=== PATIENT | male | born 1965 | race African-American/Black ===

== ENCOUNTER 2023-06-14 09:34 | Inpatient (IN) | payer MEDICAID, OTHER ==
[~2023-06-14] VITALS: Ht 175.3 cm; Wt 115.2 kg
[2023-06-14] VITALS (8 sets, daily range): BP systolic 165–194; BP diastolic 107–133; PULSE 92–96; RESP 18–25; TEMP 99.2
[2023-06-14 10:20] LABS: BASOPHILS % 0.2 % (0.0-2.0); EOSINOPHILS % 1.7 % (0.0-5.0); HEMATOCRIT. 44.5 % (42.0-52.0); HEMOGLOBIN. 14.5 g/dL (14.0-18.0); LYMPHOCYTES % 18.7 % (20.0-50.0); MEAN CORPUSCULAR HEMOGLOBIN 28.2 pg (28.0-32.0); MEAN CORPUSCULAR HGB CONC 32.7 g/dL (31.0-37.0); MEAN CORPUSCULAR VOLUME 86.3 fL (80.0-94.0); MONOCYTES % 7.7 % (2.0-8.0); NEUTROPHILS % 71.7 % (40.0-76.0); PLATELET 187 x1000/uL (130-400); RED BLOOD CELL COUNT 5.15 mill/uL (4.7-6.1); RED CELL DISTRIBUTION WIDTH 16.8 % (11.6-14.6)
[2023-06-14] MEDS ORDERED: HYDRALAZINE 20MG/ML VIAL IV NR (10:30)
[2023-06-14 10:35] LABS: CALCIUM 8.7 mg/dL (8.5-10.1); CHLORIDE 105 mEq/L (98-107); INDEX HEMOLYSI 1 (1-3); INDEX ICTERIC 1 (1-4); INDEX LIPEMIC 1 (1-3); POTASSIUM 3.6 mEq/L (3.5-5.1); SODIUM 136 mEq/L (136-145)
[2023-06-14 10:44] LABS: ALANINE AMINOTRANSFERASE 21 IU/L (13-61); ALBUMIN 3.6 g/dL (3.4-5.0); ASPARTATE AMINOTRANSFERASE 19 IU/L (15-37); CARBON DIOXIDE 28 mEq/L (21-32); CREATININE 1.1 mg/dL (0.6-1.3); GLUCOSE 91 mg/dL (70-105); PROTEIN TOTAL 8.5 g/dL (6.0-8.3); TROPONIN I HIGH SENSITIVITY 41 ng/L (<78); UREA NITROGEN BLOOD 14 mg/dL (7-21)
[2023-06-14 10:48] LABS: NT PRO B-TYPE NATRIURETIC PEP 937 pg/mL (5-125)
[2023-06-14] MEDS ORDERED: HYDRALAZINE 20MG/ML VIAL IV ONE (11:45)
[2023-06-14] MEDS: FUROSEMIDE 40MG/4ML VIAL IVP SCH ×2 (12:00→13:40)
[2023-06-14] MEDS ORDERED: LABETALOL 5MG/ML SYR 20 MG/4 ML SYRINGE IV ONE (15:30)
[2023-06-14] MEDS ORDERED: LABETALOL 5MG/ML SYR 20 MG/4 ML SYRINGE IV NR (16:00)
[2023-06-14] MEDS ORDERED: NITROGLYCERIN 50MG PREMIX 250 ML IV PRN ×2 (17:46→18:00)
[2023-06-14] MEDS ORDERED: ACETAMINOPHEN 325MG TABLET PO PRN (23:15)
[2023-06-14] MEDS ORDERED: DOCUSATE SODIUM 100MG CAPSULE PO PRN (23:15)
[2023-06-14] MEDS ORDERED: ONDANSETRON HCL 4MG/2ML INJ IV PRN (23:15)
[2023-06-14] MEDS ORDERED: IPRATROPIUM/ALBUTEROL 0.5-3(2.5)MG/3ML NEB HHN PRN (23:15)
[2023-06-14] MEDS ORDERED: HYDROCODONE/ACETAMINOPHEN 5/325MG TABLET PO PRN (23:15)
[2023-06-14] MEDS ORDERED: LORAZEPAM 0.5MG TABLET PO PRN (23:15)
[2023-06-14] MEDS ORDERED: NALOXONE HCL 0.4MG/ML VIAL IV PRN (23:30)
[2023-06-14] MEDS: ACETAMINOPHEN 325MG TABLET PO PRN (23:47)
[2023-06-15] VITALS (94 sets, daily range): BP systolic 117–185; BP diastolic 54–124; PULSE 83–103; RESP 8–131; TEMP 97.8–98.6
[2023-06-15] MEDS: NICARDIPINE 50 MG in SODIUM CHLORIDE 0.9% 230 ML IV PRN ×3 (00:03→10:49)
[2023-06-15 05:35] LABS: BASOPHILS % 0.2 % (0.0-2.0); CHLORIDE 100 mEq/L (98-107); HEMATOCRIT. 45.9 % (42.0-52.0); HEMOGLOBIN. 14.9 g/dL (14.0-18.0); INDEX HEMOLYSI 1 (1-3); INDEX ICTERIC 1 (1-4); INDEX LIPEMIC 1 (1-3); LYMPHOCYTES % 14.7 % (20.0-50.0); MEAN CORPUSCULAR HEMOGLOBIN 27.9 pg (28.0-32.0); MEAN CORPUSCULAR HGB CONC 32.4 g/dL (31.0-37.0); MEAN CORPUSCULAR VOLUME 86.3 fL (80.0-94.0); MEAN PLATELET VOLUME 7.9 fl (7.4-10.4); MONOCYTES % 9.8 % (2.0-8.0); NEUTROPHILS % 74.3 % (40.0-76.0); PLATELET 207 x1000/uL (130-400); POTASSIUM 3.2 mEq/L (3.5-5.1); RED BLOOD CELL COUNT 5.32 mill/uL (4.7-6.1); RED CELL DISTRIBUTION WIDTH 16.4 % (11.6-14.6); SODIUM 137 mEq/L (136-145); WHITE BLOOD COUNT 5.9 x1000/uL (4.5-11.0)
[2023-06-15 05:40] LABS: CALCIUM 9.2 mg/dL (8.5-10.1); CARBON DIOXIDE 27 mEq/L (21-32); CREATININE 1.1 mg/dL (0.6-1.3); GLUCOSE 130 mg/dL (70-105); UREA NITROGEN BLOOD 15 mg/dL (7-21)
[2023-06-15 05:52] LABS: *AMPHETAMINES SCREEN URINE NEGATIVE (NEGATIVE); *BARBITURATES SCREEN URINE NEGATIVE (NEGATIVE); *BENZODIAZEPINES SCREEN URINE NEGATIVE (NEGATIVE); *COCAINE SCREEN URINE NEGATIVE (NEGATIVE); CANNABINOID URINE SCREEN NEGATIVE (NEGATIVE); ECSTASY MDMA SCREEN URINE NEGATIVE (NEGATIVE); METHADONE URINE SCREEN NEGATIVE (NEGATIVE); OPIATES URINE SCREEN NEGATIVE (NEGATIVE); PHENCYCLIDINE URINE SCREEN NEGATIVE (NEGATIVE)
[2023-06-15 06:11] LABS: HEPATITIS B SURFACE ANTIGEN NEGATIVE
[2023-06-15 06:40] LABS: HEPATITIS C VIR.AB 0.19 INDEXVAL (0.00-0.80)
[2023-06-15] MEDS: FUROSEMIDE 40MG/4ML VIAL IVP SCH ×3 (09:13→17:00)
[2023-06-15] MEDS: LOSARTAN POTASSIUM 100 MG TABLET PO SCH (11:22)
[2023-06-15] MEDS: CLONIDINE 0.1MG TABLET PO SCH ×2 (11:22→13:08)
[2023-06-15] MEDS ORDERED: POTASSIUM CHLORIDE 20MEQ/PACKET PO NR (12:15)
[2023-06-15] MEDS ORDERED: SPIRONOLACTONE 25MG TABLET PO SCH (12:15)
[2023-06-15 12:44] LABS: TROPONIN I HIGH SENSITIVITY 58 ng/L (<78)
[2023-06-15] MEDS ORDERED: HYDRALAZINE HCL 50MG TABLET PO SCH (14:00)
[2023-06-15 15:12] LABS: TROPONIN I HIGH SENSITIVITY 106 ng/L (<78)
[2023-06-15] MEDS: SPIRONOLACTONE 25MG TABLET PO SCH (17:00)
[2023-06-15] MEDS: HYDRALAZINE HCL 100MG TABLET PO SCH (21:44)
[2023-06-15] MEDS: CLONIDINE 0.2MG TABLET PO SCH (21:44)
[2023-06-16] VITALS (48 sets, daily range): BP systolic 117–175; BP diastolic 63–112; PULSE 84–107; RESP 12–63; TEMP 98–99.2
[2023-06-16] MEDS: HYDRALAZINE HCL 100MG TABLET PO SCH ×3 (06:07→21:48)
[2023-06-16] MEDS: CLONIDINE 0.2MG TABLET PO SCH ×3 (06:07→21:47)
[2023-06-16 07:09] LABS: TROPONIN I HIGH SENSITIVITY 165 ng/L (<78)
[2023-06-16] MEDS ORDERED: ASPIRIN 81MG TABLET PO NR (07:30)
[2023-06-16 08:28] LABS: BASOPHILS % 0.3 % (0.0-2.0); EOSINOPHILS % 1.9 % (0.0-5.0); HEMATOCRIT. 42.9 % (42.0-52.0); LYMPHOCYTES % 14.6 % (20.0-50.0); MEAN CORPUSCULAR HEMOGLOBIN 28.2 pg (28.0-32.0); MEAN CORPUSCULAR HGB CONC 32.7 g/dL (31.0-37.0); MEAN CORPUSCULAR VOLUME 86.2 fL (80.0-94.0); MEAN PLATELET VOLUME 8.1 fl (7.4-10.4); MONOCYTES % 11.2 % (2.0-8.0); PLATELET 169 x1000/uL (130-400); RED BLOOD CELL COUNT 4.98 mill/uL (4.7-6.1); RED CELL DISTRIBUTION WIDTH 16.5 % (11.6-14.6); WHITE BLOOD COUNT 4.8 x1000/uL (4.5-11.0)
[2023-06-16 08:38] LABS: CHLORIDE 104 mEq/L (98-107); INDEX HEMOLYSI 3 (1-3); INDEX ICTERIC 1 (1-4); INDEX LIPEMIC 1 (1-3); POTASSIUM 3.4 mEq/L (3.5-5.1); SODIUM 138 mEq/L (136-145)
[2023-06-16 08:46] LABS: ALANINE AMINOTRANSFERASE 18 IU/L (13-61); ALBUMIN 2.9 g/dL (3.4-5.0); ASPARTATE AMINOTRANSFERASE 25 IU/L (15-37); BILIRUBIN TOTAL 1.7 mg/dL (0.1-1.0); CALCIUM 8.5 mg/dL (8.5-10.1); CARBON DIOXIDE 20 mEq/L (21-32); CREATININE 1.4 mg/dL (0.6-1.3); GLUCOSE 94 mg/dL (70-105); PROTEIN TOTAL 7.3 g/dL (6.0-8.3); UREA NITROGEN BLOOD 23 mg/dL (7-21)
[2023-06-16] MEDS: FUROSEMIDE 40MG/4ML VIAL IVP SCH (08:52)
[2023-06-16] MEDS: LOSARTAN POTASSIUM 100 MG TABLET PO SCH (08:53)
[2023-06-16] MEDS: SPIRONOLACTONE 25MG TABLET PO SCH (08:53)
[2023-06-16] MEDS ORDERED: POTASSIUM CHLORIDE 20MEQ/PACKET PO NR (10:30)
[2023-06-16] MEDS ORDERED: MAGNESIUM 2 G PREMIX 50 ML IV NR (12:30)
[2023-06-16] MEDS: ACETAMINOPHEN 325MG TABLET PO PRN (12:34)
[2023-06-16] MEDS: AMLODIPINE 5MG TABLET PO SCH (21:48)
[2023-06-17] VITALS: BP 124/73; PULSE 81; RESP 21; TEMP 99
[2023-06-17 04:00] VITALS: BP 119/75; PULSE 85; RESP 16; TEMP 98.6
[2023-06-17] MEDS: CLONIDINE 0.2MG TABLET PO SCH ×3 (05:55→21:17)
[2023-06-17] MEDS: HYDRALAZINE HCL 100MG TABLET PO SCH ×3 (05:55→21:17)
[2023-06-17 07:08] LABS: POTASSIUM 3.5 mEq/L (3.5-5.1)
[2023-06-17 07:10] LABS: CALCIUM 8.7 mg/dL (8.5-10.1)
[2023-06-17 07:25] LABS: BASOPHILS % 0.1 % (0.0-2.0); HEMATOCRIT. 41.6 % (42.0-52.0); HEMOGLOBIN. 13.7 g/dL (14.0-18.0); LYMPHOCYTES % 14.2 % (20.0-50.0); MEAN CORPUSCULAR HEMOGLOBIN 28.4 pg (28.0-32.0); MEAN PLATELET VOLUME 8.3 fl (7.4-10.4); MONOCYTES % 11.2 % (2.0-8.0); NEUTROPHILS % 72.5 % (40.0-76.0); PLATELET 178 x1000/uL (130-400); RED BLOOD CELL COUNT 4.84 mill/uL (4.7-6.1); RED CELL DISTRIBUTION WIDTH 16.2 % (11.6-14.6); WHITE BLOOD COUNT 5.5 x1000/uL (4.5-11.0)
[2023-06-17] MEDS: AMLODIPINE 5MG TABLET PO SCH ×2 (08:37→21:17)
[2023-06-17] MEDS: LOSARTAN POTASSIUM 100 MG TABLET PO SCH (08:38)
[2023-06-17 08:46] LABS: CREATININE 1.8 mg/dL (0.6-1.3)
[2023-06-17 13:06] LABS: INDEX HEMOLYSI 1 (1-3)
[2023-06-17 13:12] LABS: CREATINE KINASE 109 IU/L (39-308)
[2023-06-17 20:00] VITALS: BP 148/80; PULSE 75; RESP 20; TEMP 99.1
[2023-06-18] VITALS (7 sets, daily range): BP systolic 111–143; BP diastolic 65–97; PULSE 72–87; RESP 15–22; TEMP 97.8–99.2
[2023-06-18] MEDS: HYDRALAZINE HCL 100MG TABLET PO SCH ×3 (05:30→22:40)
[2023-06-18] MEDS: CLONIDINE 0.2MG TABLET PO SCH ×3 (05:31→22:40)
[2023-06-18 06:37] LABS: BASOPHILS % 0.2 % (0.0-2.0); EOSINOPHILS % 1.8 % (0.0-5.0); HEMATOCRIT. 39.9 % (42.0-52.0); HEMOGLOBIN. 13.1 g/dL (14.0-18.0); MEAN CORPUSCULAR HEMOGLOBIN 28.3 pg (28.0-32.0); MEAN CORPUSCULAR HGB CONC 32.9 g/dL (31.0-37.0); MEAN PLATELET VOLUME 8.2 fl (7.4-10.4); MONOCYTES % 12.1 % (2.0-8.0); NEUTROPHILS % 73.9 % (40.0-76.0); PLATELET 167 x1000/uL (130-400); RED BLOOD CELL COUNT 4.64 mill/uL (4.7-6.1); RED CELL DISTRIBUTION WIDTH 15.8 % (11.6-14.6)
[2023-06-18 07:29] LABS: CALCIUM 8.5 mg/dL (8.5-10.1)
[2023-06-18 07:37] LABS: CREATININE 2.1 mg/dL (0.6-1.3)
[2023-06-18] MEDS: AMLODIPINE 5MG TABLET PO SCH ×2 (10:01→21:06)
[2023-06-18 10:23] LABS: CLARITY URINE CLEAR (CLEAR); COLOR URINE DARK YELLOW (YELLOW); GLUCOSE URINE NEGATIVE (NEGATIVE); KETONES URINE NEGATIVE (NEGATIVE); LEUKOCYTE ESTERASE URINE NEGATIVE (NEGATIVE); NITRITE URINE NEGATIVE (NEGATIVE); OCCULT BLOOD URINE NEGATIVE (NEGATIVE); PROTEIN URINE 1+ (NEGATIVE); SPECIFIC GRAVITY URINE 1.018 (1.005-1.030)
[2023-06-18] MEDS: SODIUM CHLORIDE 0.9% 1,000 ML IV SCH (10:44)
[2023-06-18 10:51] LABS: SQUAMOUS EPITHELIAL CELL URINE RARE /lpf (RARE/1+)
[2023-06-18 10:53] LABS: BACTERIA URINE TRACE; RBC URINE NONE SEEN /hpf (0-2); WBC URINE 0-2 /hpf (0-2)
[2023-06-18] MEDS ORDERED: POTASSIUM CHLORIDE 20MEQ/PACKET PO SCH (11:00)
[2023-06-18] MEDS ORDERED: HYDR100T26 PO (16:41)
[2023-06-18] MEDS ORDERED: AMLO5TAB88 PO (16:41)
[2023-06-18] MEDS ORDERED: CLON0.2T PO (16:41)
[2023-06-18] MEDS ORDERED: ENOXAPARIN 30MG/0.3ML SYR SUBCUT SCH (18:00)
[2023-06-18] MEDS ORDERED: ENOXAPARIN 100MG/ML SYR SUBCUT NR (19:15)
[2023-06-19] VITALS (8 sets, daily range): BP systolic 135–149; BP diastolic 84–97; PULSE 72–82; RESP 20–23; TEMP 97.9–98.2; O2SAT 99
[2023-06-19] MEDS: HYDRALAZINE HCL 100MG TABLET PO SCH ×2 (05:31→14:00)
[2023-06-19] MEDS: CLONIDINE 0.2MG TABLET PO SCH ×2 (05:31→14:00)
[2023-06-19] MEDS: SODIUM CHLORIDE 0.9% 1,000 ML IV SCH (05:32)
[2023-06-19 05:46] LABS: BASOPHILS % 0.3 % (0.0-2.0); EOSINOPHILS % 2.8 % (0.0-5.0); HEMATOCRIT. 38.8 % (42.0-52.0); HEMOGLOBIN. 12.7 g/dL (14.0-18.0); LYMPHOCYTES % 16.2 % (20.0-50.0); MEAN CORPUSCULAR HEMOGLOBIN 28.3 pg (28.0-32.0); MEAN CORPUSCULAR HGB CONC 32.7 g/dL (31.0-37.0); MEAN CORPUSCULAR VOLUME 86.6 fL (80.0-94.0); MEAN PLATELET VOLUME 8.3 fl (7.4-10.4); MONOCYTES % 14.6 % (2.0-8.0); NEUTROPHILS % 66.1 % (40.0-76.0); PLATELET 164 x1000/uL (130-400); RED BLOOD CELL COUNT 4.48 mill/uL (4.7-6.1); RED CELL DISTRIBUTION WIDTH 15.8 % (11.6-14.6); WHITE BLOOD COUNT 4.6 x1000/uL (4.5-11.0)
[2023-06-19 07:24] LABS: POTASSIUM 3.6 mEq/L (3.5-5.1)
[2023-06-19 07:34] LABS: CALCIUM 8.5 mg/dL (8.5-10.1); CREATININE 1.7 mg/dL (0.6-1.3)
[2023-06-19] MEDS: AMLODIPINE 5MG TABLET PO SCH (08:47)
[2023-06-19] MEDS ORDERED: ENOXAPARIN 120MG/0.8ML SYR SUBCUT SCH (09:00)
[2023-06-19] MEDS: ACETAMINOPHEN 325MG TABLET PO PRN (16:13)
[2023-06-19] MEDS ORDERED: APIX5TAB MT (17:09)
== END 2023-06-19 20:48 | disposition home or self-care (01) | DRG 194 ==
LOC: ER 09:34 → CVICU 13:18 → EDBEDREQ 13:35 → EDBEDREQTM 13:35 → EDBEDREQSVC 17:36 → ENRESERV 21:09 → ER 21:43 → 5EST 06-16 11:40
PROVIDERS: ADMIT Family Medicine Adult Medicine; ATTEND Family Medicine Adult Medicine
DX: I13.0 Hypertensive heart and chronic kidney disease with heart failure and stage 1 through stage 4 chronic kidney disease, or unspecified chronic kidney disease (principal); N17.9 Acute kidney failure, unspecified; I82.622 Acute embolism and thrombosis of deep veins of left upper extremity; E87.1 Hypo-osmolality and hyponatremia; E66.9 Obesity, unspecified; I16.0 Hypertensive urgency; E87.6 Hypokalemia; N18.9 Chronic kidney disease, unspecified; I50.31 Acute diastolic (congestive) heart failure; Z79.01 Long term (current) use of anticoagulants; Z79.899 Other long term (current) drug therapy; Z85.46 Personal history of malignant neoplasm of prostate; Z68.37 Body mass index [BMI] 37.0-37.9, adult
CPT/HCPCS: 36415; 71045; 76770; 80048; 80053; 80061; 80305; 81003; 82550; 83735; 83880; 84484; 85025; 86803; 87340; 93005; 93306; 93350; 93970; 93971; 99285; J0360; J1650; J1940; J3475; J3490; J7030; J7050

== ENCOUNTER 2023-06-22 15:30 | Emergency (ER) | payer MEDICAID, OTHER ==
[~2023-06-22] VITALS: Ht 175.3 cm; Wt 95.5 kg
[~2023-06-22 15:30] MED LIST: AMLO5TAB88 PO; APIX5TAB MT; CLON0.2T PO; HYDR100T26 PO
[2023-06-22 15:37] VITALS: BP 151/100; O2SAT 98
[2023-06-22 16:07] LABS: BASOPHILS % 0.3 % (0.0-2.0); EOSINOPHILS % 1.4 % (0.0-5.0); HEMATOCRIT. 38.4 % (42.0-52.0); LYMPHOCYTES % 18.5 % (20.0-50.0); MEAN CORPUSCULAR HEMOGLOBIN 27.9 pg (28.0-32.0); MEAN CORPUSCULAR HGB CONC 31.4 g/dL (31.0-37.0); MEAN CORPUSCULAR VOLUME 88.8 fL (80.0-94.0); MEAN PLATELET VOLUME 8.2 fl (7.4-10.4); MONOCYTES % 11.8 % (2.0-8.0); PLATELET 182 x1000/uL (130-400); RED BLOOD CELL COUNT 4.32 mill/uL (4.7-6.1); RED CELL DISTRIBUTION WIDTH 15.1 % (11.6-14.6); WHITE BLOOD COUNT 3.2 x1000/uL (4.5-11.0)
[2023-06-22 16:10] LABS: CHLORIDE 107 mEq/L (98-107); INDEX HEMOLYSI 1 (1-3); INDEX ICTERIC 1 (1-4); INDEX LIPEMIC 1 (1-3); POTASSIUM 3.8 mEq/L (3.5-5.1); SODIUM 138 mEq/L (136-145)
[2023-06-22 16:17] LABS: ALANINE AMINOTRANSFERASE 16 IU/L (13-61); ALBUMIN 3.1 g/dL (3.4-5.0); ASPARTATE AMINOTRANSFERASE 15 IU/L (15-37); BILIRUBIN TOTAL 0.5 mg/dL (0.1-1.0); CALCIUM 8.3 mg/dL (8.5-10.1); CARBON DIOXIDE 23 mEq/L (21-32); CREATININE 1.4 mg/dL (0.6-1.3); GLUCOSE 116 mg/dL (70-105); PROTEIN TOTAL 7.6 g/dL (6.0-8.3); UREA NITROGEN BLOOD 24 mg/dL (7-21)
[2023-06-22 18:25] LABS: CLARITY URINE CLEAR (CLEAR); COLOR URINE YELLOW (YELLOW); GLUCOSE URINE NEGATIVE (NEGATIVE); KETONES URINE NEGATIVE (NEGATIVE); LEUKOCYTE ESTERASE URINE NEGATIVE (NEGATIVE); NITRITE URINE NEGATIVE (NEGATIVE); OCCULT BLOOD URINE NEGATIVE (NEGATIVE); PROTEIN URINE TRACE (NEGATIVE); SPECIFIC GRAVITY URINE 1.016 (1.005-1.030)
[2023-06-22 19:04] LABS: BACTERIA URINE 1+; RBC URINE NONE SEEN /hpf (0-2); SQUAMOUS EPITHELIAL CELL URINE RARE /lpf (RARE/1+); WBC URINE 0-2 /hpf (0-2)
[2023-06-22] MEDS ORDERED: DOXY100T28 MT (21:40)
[2023-06-22] MEDS ORDERED: ACET-2708 MT (21:40)
[2023-06-22] MEDS ORDERED: FURO-151 MT (21:40)
[2023-06-22 22:45] VITALS: PULSE 85; RESP 18; TEMP 98.3
== END 2023-06-22 22:46 | disposition home or self-care (01) ==
LOC: ER 15:30
DX: I11.0 Hypertensive heart disease with heart failure (principal); I50.9 Heart failure, unspecified; L03.115 Cellulitis of right lower limb
CPT/HCPCS: 36415; 71045; 80053; 81003; 85025; 93970; 99285